=== PATIENT | female | born 1950 | race Caucasian/White ===

== ENCOUNTER 2019-01-17 12:18 | Inpatient (IN) | payer OTHER ==
[2019-01-17 12:45] LABS: ADD MAN DIFF? NO
[2019-01-17 12:49] LABS: WHITE BLOOD COUNT 9.2 10^3/ul (4.8-10.8)
[2019-01-17 12:49] LABS: BASOPHIL # 0.1 10^3/ul (0.0-0.1); BASOPHILS % 0.9 % (0.0-2.0); EOSINOPHILS # 0.4 10^3/ul (0.0-0.5); EOSINOPHILS % 4.6 % (0.0-7.0); HEMATOCRIT 36.5 % (37.0-47.0); HEMOGLOBIN 11.7 g/dl (12.0-16.0); LYMPHOCYTES # 2.1 10^3/ul (0.8-2.9); LYMPHOCYTES % 23.1 % (15.0-51.0); MEAN CORPUSCULAR HGB CONC 32.1 g/dl (32.0-37.0); MEAN CORPUSCULAR VOLUME 87.3 fl (82.0-101.0); MEAN PLATELET VOLUME 9.3 fl (7.4-10.4); MONOCYTE # 0.9 10^3/ul (0.3-0.9); MONOCYTES % 9.9 % (0.0-11.0); NEUTROPHIL # 5.6 10^3/ul (1.6-7.5); NEUTROPHILS % 61.2 % (39.0-77.0); PLATELET COUNT 373 10^3/UL (140-415); RED BLOOD COUNT 4.18 10^6/ul (4.20-5.40); RED CELL DISTRIBUTION WIDTH 16.6 % (11.5-14.5)
[2019-01-17 13:05] LABS: ALANINE AMINOTRANSFERASE 19 IU/L (13-69); ALBUMIN/GLOBULIN RATIO 0.95; ALKALINE PHOSPHATASE 95 IU/L (42-121); ANION GAP 12 (5-13); ASPARTATE AMINO TRANSFERASE 23 IU/L (15-46); BLOOD UREA NITROGEN 24 mg/dl (7-20); CALCIUM 9.7 mg/dl (8.4-10.2); CARBON DIOXIDE 21 mmol/L (21-31); CHLORIDE 105 mmol/L (97-110); CREATININE 0.84 mg/dl (0.44-1.00); Estimated GFR > 60 mL/min (>60); GLUCOSE 100 mg/dl (70-220); POTASSIUM 4.5 mmol/L (3.5-5.1); SODIUM 138 mmol/L (135-144); TOTAL PROTEIN 8.2 g/dl (6.1-8.1)
[2019-01-17 13:11] LABS: ACETAMINOPHEN < 10.0 ug/ml (10.0-30.0); ETHANOL < 10.0 mg/dl (0-0); SALICYLATE < 1.0 mg/dl (5.0-30.0)
[2019-01-17] MEDS ORDERED: ONDANSETRON 4 MG INJ IV (15:00)
[2019-01-17] MEDS ORDERED: NACL 0.9% 3 ML SYG IV (15:00)
[2019-01-17 15:36] LABS: ADD UMIC NO; UR ASCORBIC ACID NEGATIVE (NEGATIVE); UR BILIRUBIN (Dip) NEGATIVE (NEGATIVE); UR BLOOD (Dip) NEGATIVE (NEGATIVE); UR CLARITY CLEAR (CLEAR); UR COLOR STRAW (YELLOW); UR GLUCOSE (Dip) NEGATIVE (NEGATIVE); UR KETONES (Dip) NEGATIVE (NEGATIVE); UR LEUKOCYTE ESTERASE (Dip) NEGATIVE Leu/ul (NEGATIVE); UR NITRITE (Dip) NEGATIVE (NEGATIVE); UR SPECIFIC GRAVITY (Dip) 1.006 (1.003-1.030); UR TOTAL PROTEIN (Dip) NEGATIVE (NEGATIVE); UR UROBILINOGEN (Dip) NEGATIVE (NEGATIVE)
[2019-01-17 15:52] LABS: AMPHETAMINE/METHAMPHETAMINE Negative (NEGATIVE); BARBITURATES Negative (NEGATIVE); BENZODIAZEPINES Positive (NEGATIVE); CANNABINOIDS Negative (NEGATIVE); COCAINE Negative (NEGATIVE); OPIATES Positive (NEGATIVE)
[2019-01-18] MEDS: PANTOPRAZOLE (EC) 40 MG TAB PO (06:00)
[2019-01-18 06:47] LABS: ADD MAN DIFF? NO
[2019-01-18 06:51] LABS: BASOPHIL # 0.1 10^3/ul (0.0-0.1); BASOPHILS % 0.6 % (0.0-2.0); EOSINOPHILS % 0.1 % (0.0-7.0); HEMATOCRIT 38.7 % (37.0-47.0); LYMPHOCYTES # 1.3 10^3/ul (0.8-2.9); LYMPHOCYTES % 9.2 % (15.0-51.0); MEAN CORPUSCULAR HEMOGLOBIN 27.7 pg (29.0-33.0); MEAN CORPUSCULAR VOLUME 89.4 fl (82.0-101.0); MEAN PLATELET VOLUME 9.6 fl (7.4-10.4); MONOCYTE # 1.4 10^3/ul (0.3-0.9); MONOCYTES % 9.8 % (0.0-11.0); NEUTROPHIL # 11.2 10^3/ul (1.6-7.5); NEUTROPHILS % 79.8 % (39.0-77.0); PLATELET COUNT 381 10^3/UL (140-415); RED BLOOD COUNT 4.33 10^6/ul (4.20-5.40); RED CELL DISTRIBUTION WIDTH 17.4 % (11.5-14.5)
[2019-01-18 07:07] LABS: IRON 19 ug/dl (35-150)
[2019-01-18 07:09] LABS: ALANINE AMINOTRANSFERASE 53 IU/L (13-69); ALBUMIN 3.8 g/dl (3.3-4.9); ALBUMIN/GLOBULIN RATIO 0.95; ALKALINE PHOSPHATASE 103 IU/L (42-121); ANION GAP 18 (5-13); ASPARTATE AMINO TRANSFERASE 106 IU/L (15-46); BLOOD UREA NITROGEN 29 mg/dl (7-20); CALCIUM 9.4 mg/dl (8.4-10.2); CARBON DIOXIDE 15 mmol/L (21-31); CHLORIDE 111 mmol/L (97-110); CREATININE 1.06 mg/dl (0.44-1.00); Estimated GFR 52 mL/min (>60); GLUCOSE 74 mg/dl (70-220); MAGNESIUM 2.4 mg/dl (1.7-2.5); PHOSPHORUS 6.5 mg/dl (2.5-4.9); POTASSIUM 3.7 mmol/L (3.5-5.1); SODIUM 144 mmol/L (135-144); TOTAL PROTEIN 7.8 g/dl (6.1-8.1)
[2019-01-18 07:16] LABS: % IRON SATURATION 4 % SAT (22-52); TOTAL IRON BINDING CAPACITY 461 ug/dl (241-421)
[2019-01-18 07:38] LABS: THYROID STIMULATING HORMONE 0.243 MIU/L (0.465-4.680)
[2019-01-18 07:42] LABS: FERRITIN 25.2 ng/ml (11.1-264.0)
[2019-01-18 08:07] LABS: HEMOGLOBIN A1C 5.7 % (0-5.9)
[2019-01-18] MEDS: PSYLLIUM 28% PACKET PO (11:00)
[2019-01-18] MEDS: SOD CHLORIDE 0.9% 1,000 ML IV ×2 (12:15→19:00)
[2019-01-18] MEDS: SOD FERRIC GLUC COMPLX 125 MG in SOD CHLORIDE 0.9% 100 ML IVPB (16:09)
[2019-01-18] MEDS ORDERED: ZOLPIDEM 5 MG TAB PO (17:30)
[2019-01-18] MEDS: ZOLPIDEM 5 MG TAB PO (22:10)
[2019-01-19] MEDS: SOD CHLORIDE 0.9% 1,000 ML IV ×3 (03:00→19:00)
[2019-01-19 05:34] LABS: ADD MAN DIFF? NO
[2019-01-19 05:39] LABS: BASOPHILS % 0.4 % (0.0-2.0); EOSINOPHILS # 0.3 10^3/ul (0.0-0.5); EOSINOPHILS % 2.7 % (0.0-7.0); HEMOGLOBIN 11.4 g/dl (12.0-16.0); LYMPHOCYTES % 10.8 % (15.0-51.0); MEAN CORPUSCULAR HEMOGLOBIN 27.9 pg (29.0-33.0); MEAN CORPUSCULAR HGB CONC 31.7 g/dl (32.0-37.0); MEAN CORPUSCULAR VOLUME 88.2 fl (82.0-101.0); MEAN PLATELET VOLUME 9.7 fl (7.4-10.4); MONOCYTE # 1.2 10^3/ul (0.3-0.9); MONOCYTES % 12.8 % (0.0-11.0); NEUTROPHIL # 6.8 10^3/ul (1.6-7.5); NEUTROPHILS % 73.1 % (39.0-77.0); PLATELET COUNT 363 10^3/UL (140-415); RED BLOOD COUNT 4.08 10^6/ul (4.20-5.40); RED CELL DISTRIBUTION WIDTH 17.5 % (11.5-14.5)
[2019-01-19 05:39] LABS: WHITE BLOOD COUNT 9.3 10^3/ul (4.8-10.8)
[2019-01-19] MEDS: PANTOPRAZOLE (EC) 40 MG TAB PO (05:39)
[2019-01-19 06:08] LABS: ANION GAP 12 (5-13); BLOOD UREA NITROGEN 37 mg/dl (7-20); CALCIUM 8.2 mg/dl (8.4-10.2); CARBON DIOXIDE 16 mmol/L (21-31); CHLORIDE 114 mmol/L (97-110); CREATININE 1.36 mg/dl (0.44-1.00); Estimated GFR 39 mL/min (>60); GLUCOSE 91 mg/dl (70-220); MAGNESIUM 2.6 mg/dl (1.7-2.5); PHOSPHORUS 3.3 mg/dl (2.5-4.9); POTASSIUM 3.7 mmol/L (3.5-5.1); SODIUM 142 mmol/L (135-144)
[2019-01-19] MEDS: PSYLLIUM 28% PACKET PO (09:00)
[2019-01-19] MEDS: DULOXETINE 30 MG CAP DR PO ×2 (10:39→20:03)
[2019-01-19] MEDS ORDERED: BISACODYL (EC) 5 MG TAB PO (11:30)
[2019-01-19] MEDS ORDERED: HYDROCORTISONE 25 MG SUPP PR (11:30)
[2019-01-19] MEDS ORDERED: SOD FERRIC GLUC COMPLX 125 MG in SOD CHLORIDE 0.9% 100 ML IVPB (13:00)
[2019-01-19] MEDS: SOD FERRIC GLUC COMPLX 125 MG in SOD CHLORIDE 0.9% 100 ML IVPB (14:51)
[2019-01-19] MEDS: ZOLPIDEM 5 MG TAB PO (20:03)
[2019-01-20] MEDS: SOD CHLORIDE 0.9% 1,000 ML IV ×4 (00:45→21:11)
[2019-01-20] MEDS: PANTOPRAZOLE (EC) 40 MG TAB PO (05:04)
[2019-01-20 05:17] LABS: ADD MAN DIFF? NO
[2019-01-20 05:22] LABS: BASOPHILS % 0.6 % (0.0-2.0); EOSINOPHILS # 0.2 10^3/ul (0.0-0.5); EOSINOPHILS % 3.6 % (0.0-7.0); HEMOGLOBIN 10.5 g/dl (12.0-16.0); LYMPHOCYTES # 1.6 10^3/ul (0.8-2.9); LYMPHOCYTES % 23.5 % (15.0-51.0); MEAN CORPUSCULAR HGB CONC 31.8 g/dl (32.0-37.0); MEAN PLATELET VOLUME 9.7 fl (7.4-10.4); MONOCYTE # 0.9 10^3/ul (0.3-0.9); MONOCYTES % 12.8 % (0.0-11.0); NEUTROPHILS % 59.2 % (39.0-77.0); PLATELET COUNT 323 10^3/UL (140-415); RED BLOOD COUNT 3.75 10^6/ul (4.20-5.40); RED CELL DISTRIBUTION WIDTH 17.5 % (11.5-14.5)
[2019-01-20 05:22] LABS: WHITE BLOOD COUNT 6.7 10^3/ul (4.8-10.8)
[2019-01-20 05:41] LABS: ANION GAP 7 (5-13); BLOOD UREA NITROGEN 18 mg/dl (7-20); CALCIUM 8.2 mg/dl (8.4-10.2); CARBON DIOXIDE 19 mmol/L (21-31); CHLORIDE 115 mmol/L (97-110); CREATININE 0.79 mg/dl (0.44-1.00); Estimated GFR > 60 mL/min (>60); GLUCOSE 100 mg/dl (70-220); POTASSIUM 3.6 mmol/L (3.5-5.1); SODIUM 141 mmol/L (135-144)
[2019-01-20] MEDS: DULOXETINE 30 MG CAP DR PO ×2 (08:29→20:04)
[2019-01-20] MEDS: PSYLLIUM 28% PACKET PO (08:30)
[2019-01-20] MEDS: SOD FERRIC GLUC COMPLX 125 MG in SOD CHLORIDE 0.9% 100 ML IVPB (14:03)
[2019-01-20] MEDS: ZOLPIDEM 5 MG TAB PO (21:11)
[2019-01-21] MEDS: SOD CHLORIDE 0.9% 1,000 ML IV (05:13)
[2019-01-21] MEDS: PANTOPRAZOLE (EC) 40 MG TAB PO (05:13)
[2019-01-21 06:07] LABS: ADD MAN DIFF? NO
[2019-01-21 06:16] LABS: BASOPHIL # 0.1 10^3/ul (0.0-0.1); BASOPHILS % 0.7 % (0.0-2.0); EOSINOPHILS # 0.2 10^3/ul (0.0-0.5); EOSINOPHILS % 3.2 % (0.0-7.0); HEMATOCRIT 34.8 % (37.0-47.0); LYMPHOCYTES # 1.7 10^3/ul (0.8-2.9); LYMPHOCYTES % 24.6 % (15.0-51.0); MEAN CORPUSCULAR HEMOGLOBIN 28.2 pg (29.0-33.0); MEAN CORPUSCULAR HGB CONC 31.6 g/dl (32.0-37.0); MEAN CORPUSCULAR VOLUME 89.2 fl (82.0-101.0); MEAN PLATELET VOLUME 9.5 fl (7.4-10.4); MONOCYTE # 0.9 10^3/ul (0.3-0.9); MONOCYTES % 13.8 % (0.0-11.0); NEUTROPHIL # 3.9 10^3/ul (1.6-7.5); NEUTROPHILS % 57.4 % (39.0-77.0); PLATELET COUNT 330 10^3/UL (140-415); RED CELL DISTRIBUTION WIDTH 17.2 % (11.5-14.5)
[2019-01-21 06:16] LABS: WHITE BLOOD COUNT 6.8 10^3/ul (4.8-10.8)
[2019-01-21 06:43] LABS: ANION GAP 5 (5-13); BLOOD UREA NITROGEN 10 mg/dl (7-20); CALCIUM 8.8 mg/dl (8.4-10.2); CARBON DIOXIDE 20 mmol/L (21-31); CHLORIDE 113 mmol/L (97-110); CREATININE 0.55 mg/dl (0.44-1.00); Estimated GFR > 60 mL/min (>60); GLUCOSE 87 mg/dl (70-220); POTASSIUM 3.8 mmol/L (3.5-5.1); SODIUM 138 mmol/L (135-144)
[2019-01-21] MEDS: PSYLLIUM 28% PACKET PO (07:55)
[2019-01-21] MEDS: DULOXETINE 30 MG CAP DR PO ×2 (07:55→21:46)
[2019-01-21] MEDS: LOPERAMIDE 2 MG CAP PO (09:19)
[2019-01-21] MEDS: ACETAMINOPHEN 325 MG TAB PO (11:10)
[2019-01-21] MEDS: ALPRAZOLAM 0.25 MG TAB PO (16:41)
[2019-01-21] MEDS: ZOLPIDEM 5 MG TAB PO (20:05)
[2019-01-22] MEDS: ALPRAZOLAM 0.25 MG TAB PO (04:11)
[2019-01-22] MEDS: PANTOPRAZOLE (EC) 40 MG TAB PO (06:14)
[2019-01-22] MEDS: LOPERAMIDE 2 MG CAP PO (08:29)
[2019-01-22] MEDS: DULOXETINE 30 MG CAP DR PO (08:29)
[2019-01-22] MEDS: PSYLLIUM 28% PACKET PO (08:29)
[2019-01-22] MEDS: hydrOXYzine PAMOATE 25 MG CAP PO (11:25)
[2019-01-22] MEDS: FERROUS FUMARATE (SR) TAB PO (13:30)
[2019-01-22] MEDS ORDERED: DULOXETINE 30 MG CAP DR PO (21:00)
== END 2019-01-22 17:05 | DRG 918 ==
LOC: MS3 23:03 → E/R 12:18 → TEL 14:00 → MS3 01-18 20:25
PROVIDERS: Internal Medicine
DX: T42.4X2A Poisoning by benzodiazepines, intentional self-harm, initial encounter (principal); K62.5 Hemorrhage of anus and rectum; T14.91XA Suicide attempt, initial encounter; F31.9 Bipolar disorder, unspecified; N28.9 Disorder of kidney and ureter, unspecified; F41.9 Anxiety disorder, unspecified; F43.10 Post-traumatic stress disorder, unspecified; K21.9 Gastro-esophageal reflux disease without esophagitis
CPT/HCPCS: 36415; 71045; 76775; 80048; 80053; 80307; 81003; 82728; 82962; 83036; 83540; 83735; 84100; 84443; 85025; 93005; 99285-25